=== PATIENT | female | born 1970 | race Hispanic/Latino ===

== ENCOUNTER 2017-03-15 17:52 | Emergency (ER) | payer OTHER ==
[2017-03-15] MEDS ORDERED: Lidocaine 1% w/Epinephrine 1:200K 30 ML VIAL ONE (18:42)
[2017-03-15] MEDS ORDERED: HYDROcodone/Acetaminophen 10/325 mg Tablet ONE (18:55)
[2017-03-15] MEDS ORDERED: Adacel (T-DAP) 0.5 ML VIAL ONE (19:42)
--- NOTE | 2017-03-15 20:27 | RAD ---
EXAM: LEFT TIBIA AND FIBULA TWO VIEWS 03/15/17 HISTORY: Patient was doing box jumps and missed hitting the left leg on the box causing abrasion. COMPARISON: None. FINDINGS: No fracture. No cortical irregularity or periosteal reaction. There is subcutaneous emphysema involving the proximal anterior left lower extremity. No radiopaque foreign body. IMPRESSION: Subcutaneous emphysema. No radiopaque foreign body. No fracture. POS: [facility]
== END 2017-03-15 20:25 ==
LOC: ERS 17:52
DX: S81.812A Laceration without foreign body, left lower leg, initial encounter (principal); Z87.891 Personal history of nicotine dependence; W22.8XXA Striking against or struck by other objects, initial encounter; Y93.39 Activity, other involving climbing, rappelling and jumping off
CPT/HCPCS: 12005; 90471; 90715